=== PATIENT | male | born 1950 | race Caucasian/White ===

== ENCOUNTER 2018-03-03 15:58 | Inpatient (IN) | payer MEDICARE ==
[2018-03-03 16:18] LABS: #Monocytes 0.7 thou/uL (0.11-0.59); %Basophils 0.3 % (0.0-1.0); %Eosinophils 0.3 % (0.0-10.0); %Lymphocytes 5.4 % (21.0-51.0); %Neutrophils 90.1 % (42.0-75.0); Hemoglobin 11.9 g/dL (14.0-18.0); Mean Corpuscular HGB CONC 32.6 g/dL (32.0-36.0); Mean Corpuscular Hemoglobin 30.6 pg (27.0-31.0); Mean Corpuscular Volume 93.7 fL (78.0-98.0); Mean Platelet Volume 6.6 fL (7.4-10.4); Platelet Count 271 thou/uL (130-400); RBC Distribution Width 13.1 % (11.5-14.5); White Blood Cell (WBC) Count 17.7 thou/uL (4.8-10.8)
[2018-03-03 16:28] LABS: INR-International Normal Ratio 1.1; Prothrombin Time 13.9 SEC (12.0-14.7)
[2018-03-03 16:29] LABS: PTT 25.1 SEC (22.9-36.1)
--- NOTE | 2018-03-03 16:32 | RAD ---
FRONTAL VIEW CHEST: CLINICAL HISTORY: Trauma, status post intubation. FINDINGS: There is an endotracheal tube with tip below the thoracic inlet. Cardiac silhouette is accentuated b y portable technique. There is a subtle linear density of the left upper quadrant, although this is not confirmed as an indwelling catheter as a catheter traversing the expected confines of the esophag us is not confirmed on the basis of this exam. There is no lobar consolidation. IMPRESSION: 1. Endotracheal tube with tip below the thoracic inlet. 2. Nasogastric tube is not confirmed on the basis of this exam. Recommend clinical correlation and dedicated imaging followup. POS: [facility]
[2018-03-03 16:37] LABS: ALT (SGPT) 9 U/L (8-55); AST (SGOT) 22 U/L (5-34); Albumin 4.1 g/dL (3.4-4.8); Alkaline Phosphatase 79 U/L (40-150); Anion Gap 23 mmol/L (10-20); BUN (Urea Nitrogen) 16 mg/dL (8.4-25.7); Bilirubin, Total 0.7 mg/dL (0.2-1.2); Calc. Creatinine Clearance 0 mL/min (70-130); Calcium 8.9 mg/dL (7.8-10.44); Carbon Dioxide 15 mmol/L (23-31); Chloride 104 mmol/L (98-107); Estimated GFR-MDRD 77; Globulin 2.8 g/dL (2.4-3.5); Glucose 283 mg/dL (80-115); Potassium 3.9 mmol/L (3.5-5.1); Protein, Total 6.9 g/dL (5.8-8.1); Sodium 138 mmol/L (136-145)
[2018-03-03] MEDS ORDERED: HUM PROTHROMBIN CPLX IV SCH ×2 (16:45→17:15)
[2018-03-03] MEDS ORDERED: [UNRECOGNIZED DRUG - OTHER] IV SCH ×2 (16:45→17:15)
[2018-03-03] MEDS ORDERED: ADMIXTURE FEE IV SCH ×2 (16:45→17:15)
--- NOTE | 2018-03-03 16:51 | CT ---
NONCONTRAST CT HEAD: DATE: 03/03/2018. HISTORY: The patient slipped from wheelchair this a.m. and is now unresponsive and intubated. COMPARISON: None available. FINDINGS: There is a mixed-density but predominantly increased density subdural collection along the inner tabl e of the left calvarium which extends from the middle cranial fossa to near the vertex. The largest transverse dimension is 2.5 cm. The subdural hemorrhage also extends to the left temporal lobe infer iorly. There is also increased density layering along the tentorium bilaterally, greater on the righ t, suggesting a subdural hemorrhage in this region. The subdural hemorrhage is also contiguous with parafalcine hemorrhage predominantly on the left and located posteriorly with the greatest transverse dimension of the parafalcine hemorrhage measuring 2.7 cm. There is also a suggestion of subdural hem orrhage in a right parafalcine location as well. There is significant shift of the midline structures to the right measuring 1.4 cm. There is almost complete effacement of the left lateral ventricle with dilatation of the right lateral ventricle whic h may be related to trapping of CSF. The basilar cisterns are also not well delineated suggesting a component of uncal herniation or developing uncal herniation. There is diminished attenuation of the periventricular white matter left frontal region which is nons pecific but could be attributable to chronic small-vessel ischemic changes. No acute cortical infarc tion is appreciated. There is no depressed calvarial fracture seen. In addition, no obvious subtle calvarial fracture is appreciated. Endotracheal tube and nasogastric tubes are noted in place. The nasogastric tube is incompletely maco ged but is coiled within the posterior oropharynx. Visualized paranasal sinuses and mastoid air cells are clear. IMPRESSION: 1. Extensive subdural hemorrhage along the inner table of the majority of the left calvarium with draper bdural hemorrhage along the tentorium bilaterally as well as in a parafalcine location greater block and case maker iorly on the left. 2. Sulcal effacement in the cerebral hemispheres bilaterally with almost complete effacement of the left lateral ventricle and likely trapping of cerebrospinal fluid involving the right lateral ventric le. Shift of midline structures to the right measures approximately 1.4 cm. In addition, there effa cement of the basilar cisterns suggesting uncal herniation. 3. Nonspecific low-density area in the left frontal periventricular white matter which could be rela payam to chronic ischemic changes. Subtle low-density focus is also seen within the marlyn which could b e related to lacunar infarctions of indeterminate age. 4. The above findings were discussed with Dr. Emerson in the emergency department on 03/03/2018 at 16 21 hours. Neurosurgical consultation is recommended. POS: [facility]
--- NOTE | 2018-03-03 16:56 | CT ---
CERVICAL SPINE CT WITHOUT IV CONTRAST: HISTORY: A 59-year-old male with a history of slip and fall from a wheelchair now unresponsive, level I trauma . FINDINGS: Endotracheal tube is in position. The NG tube is extensively coiled within the hypopharynx. There i s extensive cervical spondylosis with disk-osteophytosis and facet arthrosis. No evidence for acute fracture or facet dislocation. IMPRESSION: Cervical spondylosis. No acute fracture or facet dislocation. POS: [facility]
[2018-03-03 17:07] LABS: Analyzer IN Cardio ER; Base Excess (BEa) -9.2 mEq/L (-2.0 to +3.0); CO2 Tension 32.6 mmHg (35.0-45.0); Calcium, Ionized 1.11 mmol/L (1.12-1.30); Carboxyhemoglobin (COHb) 0.1 gm% (0.0-3.0); Hemoglobin (Hb) 12.3 g/dL (14.0-18.0); O2 Tension (PaO2) 240.2 mmHg (> 80.0); Potassium - ABG Lab 3.75 mmol/L (3.70-5.30); Puncture Site RRA; pH, Arterial 7.31 (7.35-7.45)
[2018-03-03] MEDS ORDERED: hydrALAZINE 20 MG/ML VIAL SLOW IVP PRN (18:54)
[2018-03-03] MEDS ORDERED: Dextrose 50% Abboject 50 ML SYRINGE SLOW IVP PRN (18:54)
[2018-03-03] MEDS ORDERED: Ondansetron PF 4 MG/2 ML Vial IVP PRN (18:54)
[2018-03-03] MEDS ORDERED: Ventilator Sedation Protocol 1 EACH FS SCH (18:54)
[2018-03-03] MEDS ORDERED: Insulin Regular 300 UNITS/3 ML VIAL SC PRN (18:54)
[2018-03-03] MEDS ORDERED: Sodium Chloride 0.9% 1,000 ML IV SCH (18:54)
[2018-03-03] MEDS ORDERED: Ondansetron ODT 4 MG TAB PO PRN (18:54)
[2018-03-03] MEDS ORDERED: Dextrose 5% in Water 1,000 ML IV PRN (18:54)
[2018-03-03] MEDS ORDERED: Propofol 1,000 MG/100 ML VIAL IV PRN (19:01)
[2018-03-03] MEDS ORDERED: Fentanyl BOLUS 250 ML IVPB PRN (19:01)
[2018-03-03] MEDS ORDERED: fentaNYL Citrate/PF 2,000 MCG in Sodium Chloride 0.9% 60 ML IV SCH (19:01)
[2018-03-03] MEDS ORDERED: Propofol BOLUS 1,000 MG/100 ML VIAL IV PRN (19:01)
[2018-03-03] MEDS ORDERED: Morphine 2 MG/ML SYRINGE SLOW IVP PRN (19:01)
[2018-03-03] MEDS ORDERED: Lorazepam 2 MG/ML VIAL SLOW IVP PRN (19:01)
[2018-03-03] MEDS ORDERED: DISCONTINUE PREVIOUS NARCOTIC PAIN MEDICATIONS AND BENZODIAZEPINES FS SCH (19:01)
--- NOTE | 2018-03-03 19:17 | HP ---
REQUESTING PHYSICIAN: Dr. Emerson. ATTENDING SURGEON: Dr. Oglesby. CONSULTATIONS: Neurosurgery, Dr. Fields. HISTORY OF PRESENT ILLNESS: The patient is a 67-year-old man, who reportedly fell out of his wheelchair this morning. The caregiver notified EMS. The EMS came to the scene. The patient refused transportation and evaluation. Then, several hours later, the patient was noted to become unresponsive when EMS arrived, they had a reported GCS of 6. At the time the paramedical crew arrived, it was 3. The patient was intubated and flown here, where he underwent evaluation and examination and was noted to have a large left subdural hematoma with significant shift. The patient remained GCS of 3 with all sedations off. The history is difficult to obtain due to the patient being flown here. There was a caregiver on the scene, but per report from EMS, this person was not available to give extensive history. It was found that the patient is on Plavix and aspirin and has suffered a previous stroke. Remainder of the history is gleaned from previous records. ALLERGIES: CODEINE. CURRENT MEDICATIONS: 1. Aspirin. 2. Plavix. PAST MEDICAL HISTORY: 1. Hyperlipidemia. 2. Hypertension. 3. CVA. 4. Diabetes with neuropathy. PAST SURGICAL HISTORY: 1. Bypass. 2. Back surgery. 3. Left [id number] amputation. SOCIAL HISTORY: Unknown regarding drug, tobacco, or alcohol use as the patient does live at a residence with a caregiver and we believe a family member. REVIEW OF SYSTEMS: A 10-point review of systems is unknown. PHYSICAL EXAMINATION: VITAL SIGNS: Blood pressure 193/90, heart rate 83, respirations 16, on ventilator, and temperature is 96.8. GENERAL: The patient is in the ER bed. He is intubated and shows no reaction to deep painful stimuli. There is no gag reflex with attempts to nasogastric tube placement and there was no withdrawal to pain in any extremities and showed no change when nurses were attempting a Mata catheter. HEENT: Head, no external signs of trauma. Pupils are nonreactive bilaterally. Nose, atraumatic. Oropharynx, ET tube in place. NECK: Immobilized in a cervical collar. There is no JVD. Trachea is midline. CHEST: Lungs are clear to auscultation bilaterally. HEART: Regular rate and rhythm. ABDOMEN: Soft, flat, and nondistended with hypoactive bowel sounds. EXTREMITIES: Capillary refill is less than 3 seconds. Pulses are 2+. BACK: Atraumatic. DIAGNOSTIC STUDIES: LABORATORY RESULTS: White blood cell count 17.7, hemoglobin 11.9, hematocrit 36.5, and platelets 271. Sodium 138, potassium 3.9, chloride 104, CO2 of 15, BUN 16, creatinine 0.97, and glucose 283. LFTs are unremarkable. PT 14, INR 1.1, and PTT 25. Arterial blood gas; pH 7.31, pCO2 of 32, PO2 of 240, and base excess -9.2. IMAGING STUDIES: 1. CT of the brain without contrast shows;. a. An extensive subdural hemorrhage along the inner table of the majority of the left calvarium with subdural hemorrhage along the tentorium bilaterally as well as in the parafalcine location, greater posteriorly on the left. b. Sulcal effacement of the cerebral hemispheres bilaterally with almost complete effacement of the left lateral ventricle and likely trapping of cerebrospinal fluid involving the right lateral ventricle, shift of midline structures, measures approximately 1.4 cm. In addition, there is likely a component of uncal herniation or developing focal herniation. 2. CT of the C-spine without contrast shows cervical spondylosis. No acute fracture or facet dislocation. 3. Radiograph of the chest shows endotracheal tube tip below the thoracic inlet. ASSESSMENT: 1. Status post fall with remote presentation. 2. Large subdural hematoma with shift and possible uncal herniation. 3. History of Plavix use. 4. History of aspirin use. 5. History of prior cerebrovascular accident. 6. History of left below-knee amputation. PLAN: Plan will be to admit the patient to the critical care unit. The patient was evaluated in the emergency department by the neurosurgical services. Review of his exam and CT in addition to his history of Plavix and aspirin use, determined this is likely a nonsurvival episode. We will provide supportive care and attempt to contact family and discuss this with them. The patient was evaluated in the emergency department by Dr. Mnedel chua. Job ID: [id number]
[2018-03-03 20:32] VITALS: BP 189/76
[2018-03-03 23:12] VITALS: TEMP 97.6
--- NOTE | 2018-03-04 00:39 | CON ---
DATE OF CONSULTATION: HISTORY OF PRESENT ILLNESS: The patient is a 67-year-old male with a past medical history of CVA, hypertension, hyperlipidemia, cardiac disease, diabetes , on aspirin and Plavix, who presented to the ED per flight EMS after he became unresponsive this afternoon following a mechanical fall out of his wheelchair this morning. The caregiver reports the patient fell out of wheelchair this morning, striking his head on the ground. EMS evaluated the patient at the scene earlier today, but the patient refused further transport at that time. Later this afternoon, the patient became unresponsive, so caregiver contacted the EMS. Upon EMS arrival, the patient has GCS of 3 and required RSI. He was brought promptly per flight EMS to the emergency department and was evaluated with CT head, which showed a large left-sided subdural hematoma with extension along the tentorium as well as the parafalcine region. There is significant mass effect and shift from left to right. There is also component of uncal herniation noted. The patient was treated with Kcentra shortly after his arrival. Neurosurgery was consulted to evaluate for his acute intracranial hemorrhage. Trauma Service will also at bedside to assist with management. My exam upon arrival in the emergency department, the patient is unresponsive with a GCS of 3. He does not open his eyes. He has no appreciable motor function. He has no verbal response. His pupils were fixed and dilated bilaterally. He has no gag reflex. He is not overbreathing on the ventilator. PAST MEDICAL HISTORY: He has a past medical history of hypertension, hyperlipidemia, cardiac disease with prior cardiac stenting, diabetes, prior CVA on aspirin and Plavix. PAST SURGICAL HISTORY: Bypass surgery, cardiac stents, back surgery, left BKA. FAMILY HISTORY: Unobtainable secondary to patient's current condition. ALLERGIES: 1. CODEINE. 2. LORATADINE. REVIEW OF SYSTEMS: Unobtainable. PHYSICAL EXAMINATION: VITAL SIGNS: BP is 177/70, pulse is 66. The patient is currently being mechanically ventilated. Temperature is 96.8. CONSTITUTIONAL: The patient is unresponsive with a GCS of 3. HEENT: Head is normocephalic, atraumatic. Eyes, pupils are fixed and dilated, nonreactive. NECK: Trachea is midline and mobile. ENT: ET tube is in place. RESPIRATORY: Currently being mechanically ventilated with symmetric chest expansion. CARDIOVASCULAR: He is tachycardic. Regular rate and rhythm. MUSCULOSKELETAL: Left BKA. NEUROLOGIC: GCS of 3, otherwise, unresponsive. ASSESSMENT AND PLAN: This is a 67-year-old male, status post mechanical fall from wheelchair, who became unresponsive this afternoon, was found to have a large left-sided subdural hematoma with significant midline shift, mass effect, and extension of hematoma to the tentorium as well as the parafalcine region. There is also evidence of uncal herniation. The patient is also a history of Plavix and aspirin use for prior CVA. This was reversed with Kcentra upon his arrival. I reviewed his imaging and exam with Dr. Fields, who agreed that this unfortunately appears to be an unsurvivable event. There is currently no family at the bedside, and we do not have access to a code status. We will continue to support the patient appropriately until further plan of care and family can be mobilized. I discussed this plan with Dr. Fields, the Trauma Service, in agreement. Job ID: [id number] MTDD
[2018-03-04] MEDS ORDERED: Prevnar 13-Val Conj/PF 0.5 ML SYRINGE IM ONE (09:00)
--- NOTE | 2018-03-24 08:51 | DIS ---
DATE OF ADMISSION: 03/03/2018 DATE OF DISCHARGE: 03/04/2018 SUMMARY DATE OF : 03/03/2018. ADMISSION DIAGNOSES: 1. Status post fall with remote presentation. 2. Large subdural hematoma with shift and possible uncal herniation. 3. History of Plavix use. 4. History of aspirin use. 5. History of prior cerebrovascular accident. 6. History of left [id number] amputation. CONSULTATIONS: Neurosurgery, Dr. Fields. SUMMARY: The patient was a 67-year-old man, who reportedly fell out of his wheelchair the morning of his admission. He reportedly refused transport by EMS when later that afternoon, the patient had a sudden decline of his mental status. He was taken to a local facility, where he underwent evaluation and examination. Rapid sequence intubation was noted to have a large left subdural hematoma with significant shift. The patient was flown to our facility as a level 1 trauma activation and he underwent evaluation and examination. Repeat scan showed he had a very large left subdural hematoma with significant shift and likely uncal herniation due to his aspirin and Plavix use. This contributes significantly to the rapid increase and already noted large subdural hematoma. The patient was examined and his scans were reviewed by Neurosurgery and felt this was a nonoperative and lethal injury. The patient will be admitted to the critical care unit until the family could be notified of his prognosis and allow them to make plans. At 2236 hours, the patient had severe bradycardia and eventually asystole and passed quietly with family at bedside. Job ID: [id number]
== END 2018-03-04 00:52 | disposition expired | DRG 82 ==
LOC: ERS 15:58 → CCU 17:04
PROVIDERS: ADMIT Surgery; ATTEND Surgery
DX: S06.5X9A Traumatic subdural hemorrhage with loss of consciousness of unspecified duration, initial encounter (principal); G93.5 Compression of brain; E78.5 Hyperlipidemia, unspecified; E11.40 Type 2 diabetes mellitus with diabetic neuropathy, unspecified; I10 Essential (primary) hypertension; R00.1 Bradycardia, unspecified; I46.9 Cardiac arrest, cause unspecified; R40.2431 Glasgow coma scale score 3-8, in the field [EMT or ambulance]; Z86.73 Personal history of transient ischemic attack (TIA), and cerebral infarction without residual deficits; Z98.61 Coronary angioplasty status; Z98.890 Other specified postprocedural states; Z89.512 Acquired absence of left leg below knee; Z88.5 Allergy status to narcotic agent; Z88.8 Allergy status to other drugs, medicaments and biological substances; Z79.82 Long term (current) use of aspirin; Z79.02 Long term (current) use of antithrombotics/antiplatelets; W05.0XXA Fall from non-moving wheelchair, initial encounter
CPT/HCPCS: 70450; 71045; 72125; 80053; 82805; 85025; 85610; 85730; 94002; 96374; C9132; G0390; J0360; J2270